=== PATIENT | male | born 1975 | race Caucasian/White ===

== ENCOUNTER 2022-03-14 16:45 | Outpatient (CLI) | payer BC, SELFPAY ==
--- NOTE | ~2022-03-14 | MR_ITS ---
MRI of the right shoulder Technique: Axial proton-density fat-sat images, coronal proton density fat-sat and T2 fat-sat images, and sagittal T1-weighted and T2 fat-sat images were acquired. Clinical History: Pain Findings: No significant degenerative change at the AC joint. Coracoclavicular, coracoacromial, and c oracohumeral ligaments are intact. There is a 4 x 4 mm linear articular surface or interstitial partial tear at the distal supraspinatus tendon. There is background moderate supraspinatous tendinosis. Probable very small focal interstiti al tear near the myotendinous junction of the infraspinatus tendon. Subscapularis tendon is intact wi th mild tendinosis. Tendon of the long head of the biceps is intact. No definite labral tear identified. Inferior glenohumeral ligament is intact. No significant degenerative change or effusion of the gleno humeral joint. There is minimal fluid in the subacromial/subdeltoid bursa. No muscle atrophy or edema . Impression: 4 x 4 mm linear articular surface or interstitial partial tear at the distal supraspinatus tendon ins ertion. Probable very small focal interstitial tear near the myotendinous junction of the infraspinatus tendo n. Background [id number] rotator cuff tendinosis. Reviewed, dictated and finalized at location . [employer] Impression: 4 x 4 mm linear articular surface or interstitial partial tear at the distal abdi praspinatus tendon insertion. Probable very small focal interstitial tear near the myotendinous junction of t he infraspinatus tendon. Background [id number] rotator cuff tendinosis.
== END 2022-03-14 16:46 ==
LOC: MICIMG 16:46
PROVIDERS: PCP Family Medicine; Visit Provider Orthopaedic Surgery
DX: M25.511 Pain in right shoulder (principal)
CPT/HCPCS: 73221

== ENCOUNTER 2022-05-30 01:08 | Day surgery (SDC) | payer BC, SELFPAY ==
[2022-05-19 10:42] VITALS: BMI 34.7
--- NOTE | 2022-05-19 10:44 | SUR.PREOP ---
Report to the Outpatient Waiting Room, entrance under the green pavilion located off [facility], at time _0930 on date _05/30/22 . Planned Procedure Time: _1130 . Time changes happen often and if your time is changed the preop area will call you the afternoon before. - You and your visitor will be asked to self-screen and do not enter if you have any COVID symptoms. - Only one visitor is requested with a max of two and NO children visitors are allowed at this time. - The patient visitor may be requested to leave or wait in car when not with patient due to distancing restrictions. - A mask is optional within the hospital at this time. Patients may have clear liquids (water, carbonated beverages, clear teas, apple juice) until 3 hours prior to surgery with a maximum of 20 ounces. - No food from midnight until time of surgery - Infants may have breast milk until 4 hours before surgery, infant formula 6 hours prior to surgery. - Children will be allowed to drink immediately following surgery. If applicable, please bring a bottle or sippy cup to assist with drinking. Juice, water, soda, and popsicles are readily available. For infants on formula, please bring formula the day of surgery. Pacifiers are allowed. Take the following medications with a SIP of water the morning of surgery: __n/a DO NOT STOP ANY OF YOUR OTHER PRESCRIPTION MEDICATIONS PRIOR TO SURGERY ?EXCEPT THE FOLLOWING Medications to discontinue per physician ____n/a Date to take last dose___n/a Please no make-up, nail sl[place], hairspray, perfume, deodorant, or body powder the day of surgery. No jewelry (including any body piercings) or valuables the day of surgery, leave them at home. Please take a shower or bath the night before, or the morning of, surgery with an antibacterial soap. Wear comfortable, loose fitting clothing. Children are encouraged to wear pajamas. - Jewelry must be removed prior to entering the operating room. Rings and piercings that are not removed may be cut off. - The hospital will not accept responsibility for valuables. - Please leave all valuables, including medications, at home the day of surgery. If you are going home after surgery, a licensed long haul truck driver must drive you home. - NO public transportation without another adult if you receive anesthesia. - We recommend that an adult stay with you for 24 hours following discharge. - We also recommend that you do not drive, make important decision, drink alcoholic beverages, or take any drugs that were not prescribed by your health care provider for at least 24 hours after your discharge time. For Pediatric surgeries, we recommend two adults accompany the child home. Follow any additional instructions given to you from your surgeon. If you or anyone in your household have experienced Covid symptoms in the past week, please notify your surgeon or the nurse liaison at the phone number below for possible testing. Telephone instructions given to mary bear__and asked if any additional questions and then verbalized understanding. Patient advised to call surgeon office or pre surgery nurse liaison [phone] if any additional questions.
[2022-05-30] VITALS (8 sets, daily range): BP systolic 112–130; BP diastolic 70–89; PULSE 65–78; RESP 12–16; TEMP 36.3–36.6; O2SAT 97–99
--- NOTE | 2022-05-30 10:14 | P.PNAN_ITS ---
Anes - Initial Pre Proc Eval Procedure: Operation Date: 05/30/22 11:30 Proposed Procedures p Right Arthroscopic Rotator Cuff Repair - Frantz Turpin MD Date/Time: 05/30/22 10:14 Surgeon: Frantz Turpin MD Pre Op Diagnosis: right partial cuff rotator cuff repair Patient Data Age: 46 Gender: M Height: 1.88 m Weight: 122.5 kg Allergies Allergy/AdvReac Type Severity Reaction Status Date / Time codeine Allergy Mild GI Verified 05/30/22 09:56 intolerance hay fever Allergy Mild Congested Uncoded 05/30/22 09:56 Home Medications Medication Instructions Recorded Confirmed Type acyclovir 400 mg tablet See Rx Instructions .Route 10/20/21 05/30/22 Rx .COMPLEX #180 tabs omeprazole 20 mg tablet,delayed 20 mg PO DAILY #90 tabs 10/20/21 05/30/22 Rx release Patient hx anesthesia problems: none Family hx anesthesia problems: none Results Review: All pre-operative results and documents have been reviewed as part of the pre- operative evaluation. FORMERLY [facility] Surgical History Surgical History History of colonoscopy History of hernia repair Family History Family History Father Heart disease Social History Social History Smoking status: Former smoker Tobacco type: e-cigarettes/vaping Second hand tobacco smoke exposure: Yes Smoking end date: 03/19/18 Additional smoking assessment comments: cigarettes 1 1/12ppd x 15yrars currently vapes Alcohol intake: current Drinks per week: 5 Substance use: never Substance use type: does not use Lack of Transportation: No Lack of Food: Never True Current Housing: I Have Housing Concerned About Future Housing: No Difficulty Paying Gas/Electric Bills: No Difficulty Paying for Meds: No Currently Unemployed: No Education: Associate Degree Difficulty w/ Childcare or Family Care: No Living arrangements: with family Occupation/Education: occupation Gender identity (if verbalized by the patient): Male Sexual Orientation (if Verbalized by the Patient): Straight or Heterosexual Spiritual care concerns: No Agree to blood products: Yes Anes - Eval Final PreProcedure Day of Procedure 05/30/22 10:14 Patient weight: obese Heart: regular rate and rhythm Lungs: clear to auscultation Airway: Mallampati scale class II Neurological: alert and oriented Last oral intake: >/= 8 hours ASA classification: II Emergent: no Anesthetic plan: proceed Anesthesia type and monitoring: general ETT and standard monitoring Results Review: All pre-operative results and documents have been reviewed as part of the pre- operative evaluation. Informed Consent: The patient's anesthetic plan and its attendant risks and benefits were discussed with the patient/family/POA. Questions were solicited and answers provided to the satisfaction of the patient/family/POA.
[2022-05-30] MEDS: LACTATED RINGERS 1,000 ML 30 ML IV CONT (10:20)
[2022-05-30] MEDS: KETOROLAC 15 MG/ML VIAL (*BKC) IV PUSH (10:24)
[2022-05-30] MEDS: ACETAMINOPHEN 500 MG TABLET 1000 MG PO (10:24)
--- NOTE | 2022-05-30 11:04 | WPDHPUPDATE1 ---
History and Physical Update Update Date/Time: 05/30/22 11:04 History and Physical has been reviewed, including an updated exam of the patient. There are NO changes in the patient's condition. Risks, benefits, and alternatives have been discussed and questions answered. Patient agrees to proceed with procedure.
--- NOTE | 2022-05-30 11:32 | WPDANESPNB ---
Anes - Peripheral Nerve Block Date/Time: 05/30/22 11:32 I have discussed with the patient/family/POA the placement of a peripheral nerve block for post-operative pain management, including associated risks, benefits, complications, and side effects. Alternative methods of post-operative analgesia were detailed. Questions were solicited and answers provided to the satisfaction of the patient/family/POA. Time-Out: A pre-procedural Time-Out was completed immediately before starting the procedure and confirmed: Patient Identification, Site, Procedure, Patient Position and the Availability of Requisite Equipment. Clinical Indications: Acute post-operative pain management requested by the operative surgeon. Nerve Block Insertion Note Anes-nerve block: interscalene right Patient position: other (sitting) Skin prep: chlorhexidine Needle: 22 gauge, stimulating, insulated echogenic needle. Needle length: 50 mm Technique: nerve stimulation lost at (mA) (0.3) Technique comment: mid2mg [id number] Injectate: bupivacaine 0.5% with epi 5 mcg/ml (30ml no epi) and dexamethasone (mg) (4) Observations: tolerated well Complications: none Procedure start time:: 1117 Procedure end time:: 1123
[2022-05-30] MEDS: ceFAZolin 3 GM/D5W 100 ML 100 ML IVPB (11:48)
[2022-05-30] MEDS: BUPivacaine HCL 0.5% 10 ML AMP 30 ML INFILTRATE (12:41)
--- NOTE | 2022-05-30 15:46 | W.PM.PROC2 ---
Procedure Note - Detailed Date of Procedure 05/30/22 Pre-op Diagnosis right partial cuff rotator cuff repair Post-op Diagnosis Other (1. Rotator cuff tear (full thickness) 2. Subacromial impingement ) Procedure Performed Right shoulder 1. Arthroscopic rotator cuff repair 2. Arthroscopic subacromial decompression Surgeon Frantz Turpin MD Actuarial Mathematician Tyra Verde PA-C Anesthesia General and Regional ( interscalene block) Findings High grade partial tear completed to small full-thickness tear at the anterior supraspinatus. Very narrow but with some undermining of the articular side moving posteriorly. The cable was noted to be slightly unstable when viewed from the joint. Repair accomplished with double row anchor system with a side to side suture and 4 points of fixation. No other significant findings. Description of Procedure Preoperative antibiotics were given. An interscalene block was administered in the preoperative area. The patient was bought brought to the operating room. A general anesthetic was administered. The patient was carefully positioned in the beach chair position. The head and neck were carefully positioned. The non operative extremity was also carefully positioned. The shoulder was prepped and draped in the usual sterile fashion. Examination was performed. Standard posterior and anterior arthroscopic portals were established. Inflow achieved with the arthroscopic pump using saline and epinephrine. The glenohumeral joint was carefully inspected. The articular cartilage was normal. There was a definite rent in the anterior supraspinatus articular side, which was nearly complete. The subscapularis as well as the posterior cuff were normal. Attention was turned to the subacromial space. A complete bursectomy was performed. The rotator cuff and footprint were lightly debrided. A modest acromioplasty was performed. The tear configuration was carefully assessed. At this point the all suture anchor was placed at the medial aspect of the footprint. Two sutures were placed at the posterior and anterior aspect to be tied together. Two other sutures were placed more medially to be brought laterally into the lateral row anchor. All sutures were subsequently brought to the lateral anchor after passing with the antegrade suture passer. The arthroscopic instruments were removed. The wounds were closed with 3-0 Monocryl subcuticular suture and steri strips. There were no complications. A sling was applied and the patient brought to the recovery room. Physician early childhood teacher assistant, Tyra Verde PA-C, required for surgery; including patient positioning, draping, arthroscopic camera operation, maintaining instrument position, suture retrieval, wound closure, and dressing and sling placement. Implants Fiber tack anchor and SwiveLock anchor from [employer]. Estimated Blood Loss -10.0 Pathology None sent Complications No immediate complications Condition Stable Disposition PACU [facility] Billing Surgery - Charge Forward: Surgery Billing
== END 2022-05-30 16:12 | disposition home or self-care (01) ==
PROVIDERS: PCP Family Medicine; Visit Provider Orthopaedic Surgery
PROC: (CPT 29805; principal; 2022-05-30 11:30)
DX: M75.111 Incomplete rotator cuff tear or rupture of right shoulder, not specified as traumatic (principal); M75.41 Impingement syndrome of right shoulder; G89.18 Other acute postprocedural pain; F17.290 Nicotine dependence, other tobacco product, uncomplicated
CPT/HCPCS: 29827; 29826; 64415; A4565; A9270; C1713; J0171; J0330; J0690; J1100; J1885; J2250; J2405; J2704; J2710; J3010; J7120

== ENCOUNTER 2022-10-20 11:16 | Outpatient (CLI) | payer OTHER, SELFPAY ==
[2022-10-20 14:22] LABS: Basophils Absolute Auto 0.1 K/mm3 (0.0-0.1); Basophils Percent Auto 0.6 % (0.2-1.2); Eosinophils Absolute Auto 0.2 K/mm3 (0-0.3); Hematocrit 45.6 % (42.0-52.0); Hemoglobin 15.9 g/dL (14.0-18.0); Immature Granulocyte Absolute 0.02 K/mm3 (0.00-0.031); Immature Granulocyte Percent A 0.3 % (0-0.5); Lymphocytes Absolute Auto 1.89 K/mm3 (0.9-3.2); Lymphocytes Percent Auto 23.9 % (18.3-44.2); Mean Corpuscular HGB Conc 34.9 g/dl (32-36); Mean Corpuscular Hemoglobin 31.8 pg (26-34); Mean Corpuscular Volume 91.2 fl (80-100); Mean Platelet Volume 10.8 fl (7.4-10.4); Monocytes Absolute Auto 0.5 K/mm3 (0.1-0.6); Monocytes Percent Auto 6.6 % (2.6-8.5); Neutrophils Absolute Auto 5.2 K/mm3 (1.3-6.7); Neutrophils Percent Auto 65.6 % (45.5-73.1); Platelet Count Result 208 k/mm3 (150-375); Red Cell Distribution Width 12.8 % (11.5-14.5); White Blood Count 7.9 K/mm3 (4.5-10.0)
[2022-10-20 14:43] LABS: Alanine Aminotransferase 31 U/L (6-50); Albumin Level 4.8 g/dL (3.5-5.1); Alkaline Phosphatase 92 U/L (38-126); Anion Gap 9 mmol/L (8-16); Aspartate Amino Transferase 70 U/L (17-59); Bilirubin,Total 0.6 mg/dL (0.2-1.3); Blood Urea Nitrogen 17 mg/dL (9-20); Calcium 9.3 mg/dL (8.4-10.2); Carbon Dioxide 27 mmol/L (22-30); Chloride 101 mmol/L (98-107); Cholesterol 228 mg/dL (0-200); Estimated Glomerular Filt Rate > 60; Glucose 84 mg/dL (65-110); HDL Direct 61 mg/dL; Potassium 4.6 mmol/L (3.4-5.0); Sodium 137 mmol/L (137-145); Triglycerides 124 mg/dL (<150)
[2022-10-20 15:02] LABS: LDL Cholesterol Direct 129 mg/dL
[2022-10-20 15:07] LABS: Vitamin D 25 Hydroxy 33.8 ng/mL
== END 2022-10-20 11:17 | disposition home or self-care (01) ==
LOC: ANHGOSHLAB 11:17
PROVIDERS: PCP Family Medicine; Visit Provider Family Medicine
DX: Z00.00 Encounter for general adult medical examination without abnormal findings (principal); K21.9 Gastro-esophageal reflux disease without esophagitis; Z79.899 Other long term (current) drug therapy
CPT/HCPCS: 36415; 80053; 80061; 82306; 82607; 82728; 85025

== ENCOUNTER 2023-11-20 10:27 | Outpatient (CLI) | payer BC, SELFPAY ==
[2023-11-20 15:36] LABS: Alanine Aminotransferase 24 U/L (6-50); Albumin Level 4.7 g/dL (3.5-5.1); Alkaline Phosphatase 95 U/L (38-126); Anion Gap 12 mmol/L (4-12); Aspartate Amino Transferase 44 U/L (17-59); Bilirubin,Total 0.8 mg/dL (0.2-1.3); Blood Urea Nitrogen 9 mg/dL (9-20); Calcium 9.5 mg/dL (8.4-10.2); Carbon Dioxide 26 mmol/L (22-30); Chloride 100 mmol/L (98-107); Cholesterol 238 mg/dL (0-200); Estimated Glomerular Filt Rate > 60; Glucose 79 mg/dL (65-110); HDL Direct 56 mg/dL; Potassium 4.2 mmol/L (3.4-5.0); Sodium 138 mmol/L (137-145); Triglycerides 117 mg/dL (<150)
[2023-11-20 15:47] LABS: LDL Cholesterol Direct 150 mg/dL
[2023-11-20 15:56] LABS: Basophils Absolute Auto 0.1 K/mm3 (0.0-0.1); Basophils Percent Auto 0.8 % (0.2-1.2); Eosinophils Absolute Auto 0.2 K/mm3 (0-0.3); Eosinophils Percent Auto 2.7 % (0-4.4); Hematocrit 45.4 % (42.0-52.0); Hemoglobin 15.6 g/dL (14.0-18.0); Immature Granulocyte Absolute 0.02 K/mm3 (0.00-0.031); Immature Granulocyte Percent A 0.3 % (0-0.5); Lymphocytes Percent Auto 25.2 % (18.3-44.2); Mean Corpuscular HGB Conc 34.4 g/dl (32-36); Mean Corpuscular Hemoglobin 31.5 pg (26-34); Mean Corpuscular Volume 91.5 fl (80-100); Mean Platelet Volume 11.2 fl (7.4-10.4); Monocytes Absolute Auto 0.4 K/mm3 (0.1-0.6); Monocytes Percent Auto 7.2 % (2.6-8.5); Neutrophils Absolute Auto 3.8 K/mm3 (1.3-6.7); Neutrophils Percent Auto 63.8 % (45.5-73.1); Platelet Count Result 217 k/mm3 (150-375); Red Blood Count 4.96 M/mm3 (4.6-6.20); Red Cell Distribution Width 13.1 % (11.5-14.5)
[2023-11-20 15:59] LABS: Hepatitis C Virus Antibody Negative (Negative)
== END 2023-11-20 10:28 | disposition home or self-care (01) ==
LOC: ANHGOSHLAB 10:28
PROVIDERS: PCP Family Medicine; Visit Provider Family Medicine
DX: Z00.00 Encounter for general adult medical examination without abnormal findings (principal); Z11.59 Encounter for screening for other viral diseases
CPT/HCPCS: 36415; 80053; 80061; 85025; 86803

== ENCOUNTER 2024-11-18 10:16 | Outpatient (CLI) | payer SELFPAY ==
[2024-11-18 16:52] LABS: Anion Gap 10 mmol/L (4-12); Blood Urea Nitrogen 12 mg/dL (9-20); Calcium 9.2 mg/dL (8.4-10.2); Carbon Dioxide 27 mmol/L (22-30); Chloride 102 mmol/L (98-107); Estimated Glomerular Filt Rate > 60; Glucose 82 mg/dL (65-110); Potassium 4.5 mmol/L (3.4-5.0); Sodium 139 mmol/L (137-145)
== END 2024-11-18 10:17 | disposition home or self-care (01) ==
LOC: ANHGOSHLAB 10:16
PROVIDERS: PCP Family Medicine; Visit Provider Family Medicine
DX: Z00.00 Encounter for general adult medical examination without abnormal findings (principal)
CPT/HCPCS: 36415; 80048; 83721